=== PATIENT | female | born 1955 | race Caucasian/White ===

== ENCOUNTER 2016-07-06 12:03 | Day surgery (SDC) | payer OTHER ==
[~2016-07-06] VITALS: Ht 177.8 cm; Wt 90.3 kg
[2016-07-06] VITALS (9 sets, daily range): BP systolic 124–160; BP diastolic 61–89; PULSE 69–104; RESP 2–19; O2SAT 96–100
--- NOTE | 2016-07-06 07:55 | PCM.HPANE ---
Patient Data Surgeon Admitting Provider: Attending Provider:Alon Jameson MD Primary Care Physician:Mini Frost PA-C Other Provider: Reason for Visit Right Ankle Fracture Ht/WT & BMI Height (Feet): 5 Height (Inches): 10 Weight (Kilograms): 90.72 Body Mass Index 28.00 Allergies Coded Allergies: Procaine HCl (Verified Adverse Reaction, Severe, DOESNT WORK, 07/06/16) yellow dye (Verified Adverse Reaction, Intermediate, ASTHMA, 07/06/16) latex (Verified Adverse Reaction, Mild, SWELLING DURING DENTAL WORK, ) Uncoded Allergies: WHEAT, EGGS, MILK (Allergy, Unknown, 07/06/16) Past Anesthesia History Anesthesia History: Denies:: Abnormal Airway, Anesthesia Reactions, Difficult Intubation, Fam Anesthesia Reaction, Fam Malignant Hypertherm, Malignant Hyperthermia Diabetes History Hx Diabetes?: Yes Type of Diabetes: Type II Glycemic Control: Diet Controlled MRSA MRSA: No (post op staph infection (not MRSA)) Medications Home Meds Incl Beta Enedina: No Reported Medications Levothyroxine (Synthroid)175 Mcg [id number] Mcg PO DAILY Ref 0 07/04/16 Omeprazole 20 Mg Capsule.dr20 Mg PO DAILY Ref 0 07/04/16 Ibuprofen 600 Mg [id number] Mg PO TID PRN For Pain Ref 0 07/04/16 Fluticasone Propionate (Fluticasone Propionate Nasal)16 Gm [place].susp1 [place] NS BID #16 GM Ref 0 07/04/16 [place]-3/Dha/Epa/Fish Oil (Fish Oil 1,000 mg Softgel)1 Each Capsule1 Each PO DAILY 07/04/16 Estradiol 0.5 Mg Tablet Daily 07/04/16 Loratadine (Claritin)10 Mg Rsceezc39 Mg PO DAILY Ref 0 07/04/16 Discontinued Reported Medications Albuterol-Expunged Drug, Do Not Renew! 200 Puff/18 Gm Hfa.aer.ad200 Puff IH PRN 01/23/12 [inositol] No Conflict Check Daily 01/10/12 [aminos] No Conflict Check Daily 01/10/12 [empower] No Conflict Check Daily 01/10/12 [choline/inositol] No Conflict Check1,500 Mg DAILY 01/10/12 Olopatadine-Expunged Drug, Do Not Renew! (Patanol-Expunged Drug, Do Not Renew!) 5 Ml Drops5 Ml OP PRN 01/10/12 FLUTICASONE-Expunged Drug, Do Not Renew! (FLONASE-Expunged Drug, Do Not Renew!) 120 Sprays/16 Gm [id number] Sprays NA PRN 01/10/12 Metformin-Expunged Drug, Do Not Renew! 500 Mg Pqxhzq088 Mg PO DAILYAC 01/10/12 [loratadine] No Conflict Check10 Mg 01/10/12 [estrodiol] No Conflict Check0.5 Mg AM 01/10/12 [medroxprogestone] No Conflict Check2.5 Mg AM 01/10/12 Levothyroxine-Expunged Drug, Do Not Renew! (Synthroid-Expunged Drug, Do Not Renew!)150 Mcg Ugvxoc612 Mcg PO 01/08/12 Omeprazole-Expunged Drug, Do Not Renew! 20 Mg Capsule.dr20 Mg PO BID 01/08/12 History History of ENT Problems?: Yes HEENT History: Positive for:: Cataracts (being monitored only- no surgery) Denies:: Abnormal Airway Difficult Intubation Dysphagia Glaucoma Hearing Problem Sinus Problem TMJ Other HEENT Pertinent History: temporary crowns- one upper, one lower Hx of Heart Problems?: No Cardiovascular History: Denies:: AICD Abdominal Aortic Aneurism Atrial Fibrillation Chest Pain Coronary Artery Disease Edema Heart Murmur Hypertension Irregular Heartbeat Pacemaker Hx of Respiratory Problem?: Yes Respiratory History: Positive for:: Asthma (with seasonal allergies) Cough (R/T GERD) Use of Inhalers / NEBS Denies:: Oxygen Administration Pneumonia Tuberculosis Hx Neurologic Problems?: No Neurological History: Denies:: CVA Headaches Multiple Sclerosis Parkinson's Disease Seizures TIA Hx of GI Problems?: Yes Gastrointestinal History: Positive for:: Gastroesphageal Reflux (esophagitis, never sleeps flat) Heartburn Liver Disease (monitoring LFT- now WNL, hx of FLD) Denies:: Gall Bladder Disease Gastrointestinal Bleeding Other GI Pertinent History: spleen enlarged Hx of Problems?: Yes Genitourinary History: Denies:: Kidney Stones HX of Peritoneal Dialysis: No Other Pertinent History: cyst on kidney, bladder reconstruction Female Hx: Denies:: Currently (hysterectomy) Skin History: Denies:: History Skin Disorders? Pressure Ulcers Hx Musculoskeletal Problems?: Yes Musculoskeletal History: Positive for:: Back Injury (cervical stenosis) Musculoskeletal Trauma (right ankle fracture current admission problem) Osteoarthritis Denies:: Fibromyalgia Joint Replacement Hx of Psycho/Social Problems?: Yes Psycho Social History: Positive for:: Anxiety Bipolar Disorder Hx Depression Hx Surgeries?: Yes (hyst, bladder sling) Hx Any Other Health Problems?: Yes Other History: Positive for:: Hospitalization Thyroid Disease Denies:: Cancer Endocrine Disease History Blood Transfusions: Positive for:: Accept Blood Products? Denies:: Blood Transfuse Reaction Blood Transfusions Hx Diabetes: Yes Hx Alcohol Use: NoHx Substance Use: NoHave You Smoked inLast 12 mo: No Stop/Bang S-Snoring: Do You Snore Loudly: No T-Tired: feel tired, fatigued: No O-Obsered: Observed not breath: No P-Blood Pressure: treated: No B- Body Mass Index > 35 kg/m2: Yes A- Age over 50: Yes N- Neck Large Circumference: No G- Gender Male: No BEVERLEY Total Score: 2 BEVERLEY Risk Assessment: Low Risk, <3 Yes Risk Assessment Category Category 1A: Patient has history of documented sleep apnea, and HAS NOT received any narcotic, sedative or anesthesia administration during this stay. Category 1B: Patient has history of documented sleep apnea, and HAS received any narcotic , sedative or anesthesia administration during this stay Category 2: Patient has SUSPECTED Obstructive Sleep Apnea, and HAS received any narcotic , sedative or anesthesia administration during this stay. Category 3: Patient has SUSPECTED Obstructive Sleep Apnea and HAS NOT received narcotic, sedative or anesthesia administration during this stay. Category 4: Outpatient in Procedural Areas with known sleep apnea or who screen positive for High Risk via the STOP/BANG questionnaire. Exam Exam General Appearance: Alert, Oriented X3, Cooperative, No Acute Distress HEENT/AIRWAY: MP 1, Neck Movement (FRoM), Mouth Opening (3-4FB), Other ([address]) Lungs: Normal Air Movement Heart: Exam Unremarkable Plan Impression Patient chart reviewed, patient interviewed and anesthestic plan with risks, benefits, and alternatives discussed, and informed consent obtained. Krishan Hernandez MD Jul 06, 2016 07:55
[~2016-07-06 12:03] MED LIST: CeFAZolin 2 Gm/50 mL D5W IV Premix IV ONE; ESTR0.5T; FLUT16SP NS; IBUP-1827 PO; LEVO175T2 PO; LORA10CA PO; OMEG-38 PO; OMEP20CA11 PO
[2016-07-06] MEDS ORDERED: Ondansetron 2 mg/mL 2 mL Inj ONE (12:04)
[2016-07-06] MEDS ORDERED: Rocuronium 10 mg/mL 5 mL Inj ONE (12:04)
[2016-07-06] MEDS ORDERED: Succinylcholine Chloride 20 mg/mL 5 mL Inj ONE (12:04)
[2016-07-06] MEDS ORDERED: Dexamethasone 4 mg/mL Inj ONE (12:04)
[2016-07-06] MEDS ORDERED: Propofol 10,000 mCg/mL 20 mL Inj ONE (12:04)
[2016-07-06] MEDS ORDERED: fentaNYL-PF 50 mCg/mL 2 mL Inj ONE (12:04)
[2016-07-06] MEDS ORDERED: HYDROmorphone 2 mg/mL Inj ONE (12:04)
[2016-07-06] MEDS: Lactated Ringer's 1,000 ML IV SCH ×2 (12:30→13:44)
[2016-07-06] MEDS ORDERED: CeFAZolin 2 Gm/50 mL D5W Duplex Bag IV ONE (12:34)
[2016-07-06] MEDS ORDERED: HYDROcodone-APAP 5-325 mg Tablet PO PRN (13:45)
[2016-07-06] MEDS ORDERED: Ketorolac 15 mg/mL Inj IVPUSH ONE (13:45)
--- NOTE | 2016-07-06 13:50 | PCM.ORTHOP ---
Orthopedic Operative Report Date of Service: Jul 06, 2016 Pre Operative Diagnosis right ankle fracture Post Operative Diagnosis right ankle fracture Procedure right ankle ORIF, bimalleolar fracture Surgeon Surgeon: Alon Jameson MD Assistants: April Prabhakar Indication for Procedure right ankle fracture Findings Right ankle bimalleolar fracture, displaced with fracture, intact syndesmosis Details of Procedure Estimated Blood Loss: 15 mL Indications: Oumou Sagastume is a 60-year-old female who sustained a right bimalleolar fracture. A clear explanation was given to the patient regarding the condition present, and the available conservative and surgical options. It was emphasized that the risks and benefits of surgery include but are not limited to infection, wound healing problems, damage to adjacent structures such as nerves, blood vessels and tendons, marine oil terminal superintendent disability and pain, arthritis, hypersensitivity, deep vein thrombosis, pulmonary embolism, broken hardware, failure of surgery, need for further procedures at time of surgery or later, cast related problems, loss of limb or life. The patient was given an explanation and the patient voiced understanding of what to expect after the procedure or surgery, the limitations in activities of daily living, the likely duration for post operative recovery and the instructions that are to be followed. At the end the patient was invited to seek clarification or ask further questions but there were none. The patient voiced understanding of the entire consultation. Description of Operation: The patient was brought to the operating room. Patient name and surgical site were confirmed. Preoperative antibiotics were given. The patient was placed supine on the operating table. General anesthesia was administered. A well padded tourniquet was placed on the leg. The leg was then prepped and draped in the usual sterile fashion. The leg was exsanguinated and the tourniquet was inflated. The lateral malleolus was addressed first. An incision was made over the lateral ankle. Subcutaneous dissection was performed down to the lateral malleolus. Care was taken to avoid injury to the superficial peroneal nerve. The fracture was cleaned of debris and interposed soft tissue. The fracture was reduced to anatomic alignment using reduction clamps and preliminary fixation techniques. There was comminution and the bone was severely osteopenic and not amenable to lag screw fixation. Fluoroscopy was used to confirm satisfactory reduction. An Arthrex plate was then placed and secured in position using 3.5 mm fully threaded cortical screws proximally and 3.5 mm locking screws distally. Solid bony purchase was achieved with a combination of locking and nonlocking screws. Final radiographs confirmed anatomic reduction of the fracture, nondenominational of the ankle mortise, and adequate placement of hardware. The ankle joint was stressed and the syndesmosis was found to be stable along with no subluxation of the joint on the lateral view so the decision was made not to fix the syndesmosis, or medial malleolus fracture which was stable. The tourniquet was deflated. Hemostasis was obtained with electrocautery. The wounds were thoroughly irrigated with bulb irrigation. The wounds were then closed in layers. The incisions were cleaned and dressed with Adaptic, gauze, and soft roll. A well padded plaster splint was then placed and wrapped with an Jesse bandage. Estimated blood loss was 15 cc. There were no immediate complications. The patient was transferred to the PACU in stable condition. I was present for the entire procedure. CUSTOMS CONSULTANT SURGEON: During the operation, the services of physician medical or surgical instrument maker were medically indicated and necessary to provide exposure of the operative site for the surgical procedure and to maintain the limb in a proper position to carry out the operation safely and efficiently. Without the qualified assistant analyst being present, it would have extended the operative procedure and made the procedure technically more difficult to perform. Specimens Obtained: none Grafts, Implants: Implants-See Implant Record Complications There were no periprocedural complications identified. Condition Stable Anesthetic Administered: GA Catheters: None Output, Estimated Blood Loss: 15 Blood Admin during surgery: No Surgical Cast or Splint: Well-padded Short Leg Splint Surgical Specimen Removed: No Specimen sent to Pathology: No copies to: Alon Jameson MD, Christopher L MD Jul 06, 2016 13:50
[2016-07-06] MEDS ORDERED: Lactated Ringer's 500 ML IV PRN (14:02)
[2016-07-06] MEDS ORDERED: Lactated Ringer's 1,000 ML IV SCH (14:02)
[2016-07-06] MEDS ORDERED: EPHEDrine Sulfate 50 mg/mL Inj IVPUSH PRN (14:05)
[2016-07-06] MEDS ORDERED: fentaNYL-PF 50 mCg/mL 2 mL Inj IVPUSH PRN (14:05)
[2016-07-06] MEDS ORDERED: Dexamethasone 4 mg/mL Inj IVPUSH PRN (14:05)
[2016-07-06] MEDS ORDERED: Phenylephrine 10,000 mCg/mL Inj IVPUSH PRN (14:05)
[2016-07-06] MEDS ORDERED: Ondansetron 2 mg/mL 2 mL Inj IVPUSH PRN (14:05)
[2016-07-06] MEDS ORDERED: HYDROmorphone 1 mg/mL Inj IVPUSH PRN (14:05)
[2016-07-06] MEDS ORDERED: MetoCLOpramide 5 mg/mL 2 mL Inj IVPUSH PRN (14:05)
[2016-07-06] MEDS ORDERED: Ropivacaine-PF 0.5% 30 mL Inj INFILTRATE ONE (14:38)
--- NOTE | 2016-07-06 15:49 | PCM.ANEP1 ---
Post Anesthesia Phase 1 PACU Phase 1 Assessment Date of Service: Jul 06, 2016 Vital Signs Vital Signs Date Time Temp Pulse Resp B/P Pulse Ox O2 Delivery O2 Flow Rate FiO2 07/06/16 15:37 36.6 80 14 149/67 100 Room Air 07/06/16 15:30 83 2 128/62 97 Room Air 07/06/16 15:25 36.5 83 17 137/62 97 Room Air 07/06/16 15:20 82 16 134/61 96 Room Air 07/06/16 15:15 94 19 139/61 97 Room Air 07/06/16 15:10 102 16 124/62 97 Room Air 07/06/16 15:05 36.9 104 16 143/67 98 Room Air 07/06/16 12:41 36.8 82 16 149/70 96 Room Air Anesthetic Administered: GA Level of Alertness: Awake, talking VASQUEZ's with Equal Strength: Yes Pain: No Nausea or Vomiting: No Oxygen Delivery: Room Air Lungs: Normal Air Movement Dermatome Level: Full Sensation Krishan Hernandez MD Jul 06, 2016 15:49
--- NOTE | 2016-07-06 15:49 | PCM.ANEP2 ---
Post Anesthesia Evaluation ASA/CMS Post Anesthesia VS in Patient's Normal Range?: Yes Resp Stable; Airway Patent?: Yes CV Function & Hydration Stable: Yes Mental Status Recovered?: Yes Pain control Satisfactory?: Yes N/V Control Satisfactory?: Yes Krishan Hernandez MD Jul 06, 2016 15:49
== END 2016-07-06 23:59 | disposition home or self-care (01) ==
LOC: SAS 12:03
PROVIDERS: ATTEND Orthopaedic Surgery
DX: S82.51XA Displaced fracture of medial malleolus of right tibia, initial encounter for closed fracture (principal); E11.9 Type 2 diabetes mellitus without complications; J45.909 Unspecified asthma, uncomplicated; K21.9 Gastro-esophageal reflux disease without esophagitis; R05 Cough; F41.9 Anxiety disorder, unspecified; X58.XXXA Exposure to other specified factors, initial encounter; Y93.9 Activity, unspecified; Y92.9 Unspecified place or not applicable; Y99.9 Unspecified external cause status; Z79.899 Other long term (current) drug therapy
CPT/HCPCS: 27766; 76000; J0330; J0690; J1100; J1170; J2250; J2405; J2795; J7120